=== PATIENT | female | born 1960 | race Caucasian/White ===

== ENCOUNTER 2024-12-11 16:41 | Emergency (ER) | payer OTHER, SELFPAY ==
--- NOTE | 2024-12-11 16:48 | XR_ITS ---
The [address] [address] Patient Name: MONICA SANDERS MRN: [id number] date: 1960 Sex: F Assigned Patient Location: ED.MAIN Current Patient Location: ER Accession/Order Number: [id number] Exam Date: 12/11/2024 17:10 Report Date: 12/11/2024 18:10 At the request of: CESARIO FRIAS Procedure: XR chest 2V EXAM: XR chest 2V HISTORY: cough COMPARISON: None. TECHNIQUE: A, lateral chest x-ray. FINDINGS: Right middle lobe infiltrate consistent with pneumonia. Small density left lung base suspect small infiltrate left lower lobe. Right upper lobe, left upper midlung clear. Normal heart size. No mediastinal mass or adenopathy. No pleural effusion or pneumothorax. XR/XR chest 2V IMPRESSION: Bilateral pneumonia most prominent in the right middle lobe. Electronically authenticated by: HILARIO TRACEY Date: 12/11/2024 18:10
[2024-12-11 16:56] VITALS: BP 171/97; PULSE 89; TEMP 38; O2SAT 94; BMI 31.0
--- NOTE | 2024-12-11 17:32 | ED.URI1 ---
HPI - URI/Sore Throat General Chief Complaint: Upper Respiratory Infection Stated Complaint: COUGH DIZZY Time Seen by Provider: 12/11/24 16:47 Source: patient Limitations: no limitations History of Present Illness HPI Narrative: Patient is a 64-year-old female with no significant medical history who presents to the ER for 3-day history of cough, body aches. She denies objective fevers, vomiting or diarrhea. She has not had any sputum production or hemoptysis. She denies chest pain or shortness of breath, she states she feels achy all over but does not have any erickson chest pain. No sick contacts in the home. Last dose of Tylenol was this morning. She arrives to the emergency department with a temperature of 100.4 Fahrenheit. Related Data Home Medications ?Medication ?Instructions ?Recorded ?Confirmed No Known Home Medications 12/11/24 12/11/24 Previous Rx's ?Medication ?Instructions ?Recorded albuterol sulfate 90 mcg/actuation 2 inh inhalation Q4H PRN shortness 12/11/24 aerosol inhaler of breath or wheezing #8.5 grams vwawimtejaxxjrx-eameegqpkwfobtl-PG 10 ml PO Q6H PRN cold symptoms 12/11/24 2 mg-30 mg-10 mg/5 mL oral syrup #200 mL (Bromfed DM) levofloxacin 750 mg tablet 750 mg PO DAILY 7 days #7 tabs 12/11/24 methylprednisolone 4 mg tablets in See Rx Instructions .Route 12/11/24 a dose pack (Medrol (Elijah)) .COMPLEX #21 ea Allergies Allergy/AdvReac Type Severity Reaction Status Date / Time No Known Drug Allergies Allergy Verified 12/11/24 16:56 Review of Systems ROS Constitutional Reports: fever; Denies: chills Ears, nose, mouth, and throat Reports: nasal congestion; Denies: throat pain Cardiovascular Denies: chest pain Respiratory Reports: cough; Denies: shortness of breath Gastrointestinal Denies: nausea, vomiting or diarrhea Musculoskeletal Denies: back pain Integumentary/Breast Denies: rash Neurological Reports: headache; Denies: numbness in extremities or weakness in extremities Hematologic/Lymphatic Denies: easy bruising or easy bleeding PFSH PFSH Social History Little interest or pleasure in doing things: not at all Feeling down, depressed, or hopeless: not at all Exam Narrative Exam Narrative: Gen.: Awake, alert, in no distress Head: Normocephalic, atraumatic ENT: Moist mucous membranes, bilateral TMs clear Respiratory: No respiratory distress, lungs clear bilaterally, faint rhonchi in the right lower lobe; speaks in full sentences Speaks in full sentences cardio: Regular rate and rhythm Extremities: Moves extremities equally Psych: Normal mood and affect Neuro: No focal neuro deficit Skin: Warm, dry, intact Constitutional Vital Signs, click to edit/add: Last Vital Signs Temp 100.4 F 12/11/24 16:56 Pulse 89 12/11/24 16:56 Resp 16 12/11/24 16:56 BP 171/97 H 12/11/24 16:56 Pulse Ox 94 L 12/11/24 16:56 O2 Del Method Room Air 12/11/24 16:56 Course Vital Signs Vital signs: Vital Signs Temperature 100.4 F 12/11/24 16:56 Pulse Rate 89 12/11/24 16:56 Respiratory Rate 16 12/11/24 16:56 Blood Pressure 171/97 H 12/11/24 16:56 Pulse Oximetry 94 L 12/11/24 16:56 Oxygen Delivery Method Room Air 12/11/24 16:56 Temperature 100.4 F 12/11/24 16:56 Pulse Rate 89 12/11/24 16:56 Respiratory Rate 16 12/11/24 16:56 Blood Pressure 171/97 H 12/11/24 16:56 Pulse Oximetry 94 L 12/11/24 16:56 Oxygen Delivery Method Room Air 12/11/24 16:56 MDM - URI/Sore Throat MDM Narrative Medical decision making narrative: Patient with stable vital signs in the ER, chest x-ray shows right middle lobe pneumonia, negative respiratory swabs. Patient with no other significant medical problems and denies any chest pain or shortness of breath in the ER. She does not meet sepsis criteria. She was started on Levaquin, Bromfed-DM, steroids and albuterol inhaler for home. Follow-up closely with PCP and return to the ER if symptoms change or worsen SHARED APC VISIT, PHYSICIAN ATTESTATION: [id number] I performed a substantive part of the MDM during the patient?s E/M visit. I personally evaluated and examined the patient. I personally made or approved the documented management plan and acknowledge its risk of complications. Medical Records Attestation: I reviewed the patient's medical records. Lab Data Attestation: I reviewed the patient's lab results. Labs: Lab Results 12/11/24 Range/Units 17:05 Influenza Type A Ag Negative Influenza Type B Ag Negative SARS-CoV-2 Ag (CV2AG) Negative (NEGATIVE) Imaging Data Chest x-ray: Attestation: I have reviewed the pertinent imaging results. Radiologist's impression: ITS Impressions Chest X-Ray 12/11/24 16:48 IMPRESSION: Bilateral pneumonia most prominent in the right middle lobe. Electronically authenticated by: HILARIO TRACEY Date: 12/11/2024 18:10 Discharge Plan Discharge Chief Complaint: Upper Respiratory Infection Clinical Impression: Pneumonia, Cough Patient Disposition: Home, Self-Care Time of Disposition Decision: 18:14 Condition: Good Prescriptions / Home Meds: New levofloxacin 750 mg tablet 750 mg PO DAILY 7 Days Qty: 7 0RF methylprednisolone [Medrol (Elijah)] 4 mg tablets,dose pack See Rx Instructions .ROUTE .COMPLEX Qty: 21 0RF Rx Instructions: Taper as directed albuterol sulfate 90 mcg/actuation HFA aerosol inhaler 2 inh inhalation Q4H PRN (Reason: shortness of breath or wheezing) Qty: 8.5 0RF wfqldpqyozdxbej-nocqlpgla-SF [Bromfed DM] 2-30-10 mg/5 mL syrup 10 ml PO Q6H PRN (Reason: cold symptoms) Qty: 200 0RF No Action No Known Home Medications Print Language: Latvian Instructions: Pneumonia (ED) Referrals: Physician,Non-Staff, MD [Primary Care Provider] - 1 week
[2024-12-11 17:49] LABS: Internal Control Within Normal Limits; SARS-CoV-2 Ag NEGATIVE (NEGATIVE)
[2024-12-11 17:57] LABS: Influenza Virus A Antigen Negative; Influenza Virus B Antigen Negative; Internal Control Within Normal Limits
[2024-12-11] MEDS: ACETAMINOPHEN 325 MG TABLET 650 MG PO (17:57)
[2024-12-11] MEDS: DEXAMETHASONE SOD PHOS 10 MG/ML VIAL PO (17:57)
[2024-12-11] MEDS: HYDROCODONE BIT/HOMATROP 5 MG/1.5 MG TABLET 1 TAB PO (17:57)
[2024-12-11] MEDS: ALBUTEROL SULFATE 2.5 MG/3 ML VIAL NEB IH (18:15)
[2024-12-11 18:17] VITALS: PULSE 83; O2SAT 93
[2024-12-11] MEDS: LEVOFLOXACIN 750 MG TABLET PO (18:42)
== END 2024-12-11 18:45 | disposition home or self-care (01) ==
PROVIDERS: Physician Assistant; Emergency Provider Emergency Medicine
DX: J18.9 Pneumonia, unspecified organism (principal); R50.9 Fever, unspecified; R05.9 Cough, unspecified
CPT/HCPCS: 71046; 87804; 87811; 94640; 99284; J1100